=== PATIENT | male | born 1945 | race Caucasian/White ===

== ENCOUNTER 2019-06-05 19:15 | Inpatient (IN) | payer MEDICARE, SELFPAY ==
[2019-06-05 20:10] VITALS: BP 129/78; PULSE 70; PULSE 73; RESP 20; TEMP 36.6; O2SAT 96; BMI 19.6; BMI 19.7
--- NOTE | 2019-06-05 20:17 | HP.PCM_ITS ---
Problem List (1) Debility Status: Acute (2) Cardiopulmonary arrest Status: Acute (3) Shock Status: Acute (4) Pneumonia Status: Acute (5) Chronic obstructive pulmonary disease Status: Chronic (6) Lung mass Status: Chronic (7) Aspiration into airway Status: Acute (8) Hypertension Status: Chronic (9) Dysphagia Status: Acute History of Present Illness Date of Admission: 06/05/19 Chief Complaint: Here for rehabilitation, strengthening, prior to discharge home with . The patient is a 74 year old Male with below past medical history presented to [facility] 05/10/2019 with cardiopulmonary arrest. In car with , unresponsive with slow weak, pulse. Squad called, bradycardic despite atropine. PEA arrest with 1 round ACLS before return of spontaneous circulation. Intubated in Emergency Department, atrial fibrillation converted to normal sinus rhythm. Hypotensive, started on Levophed. Awake, moving all 4 extremities to command. Transfer to [facility]. 05/10/2019 Admit to [facility] ICU. Chest X-ray showed right lower lobe pneumonia, treated with broad spectrum antibiotics. Treated for septic shock. 05/10/2019 Sputum growing corynebacterium. Recurrent aspiration status post PEG tube placement. on Pureed diet. Duoneb, Bevespi, Prednisone taper for COPD. 6 Liters oxygen per nasal cannula, Nocturnal BiPAP for respiratory failure. Hypertonic saline, VEST for right lower lobe atelectasis, consider bronchoscopy. Pleural effusion maybe malignant. CT chest in 3 months to follow up right upper lobe spicculated nodule. 06/05/2019 Admit to TCU with debility, here for rehabilitation, strengthening, prior to discharged home with . Past Medical History Past Medical History (Chronic Problems): Chronic Problems Chronic obstructive pulmonary disease (Chronic) Lung mass (Chronic) Hypertension (Chronic) Home Medications: Ambulatory Orders Medication Instructions Recorded Acetaminophen 650 mg GT Q4H PRN PRN 06/05/19 Albuterol Aerosols [Ventolin 2.5 mg INHALATION Q6H PRN PRN 06/05/19 Aerosols] Carvedilol [Coreg] 12.5 mg GT BID 06/05/19 Docusate Sodium [Stool Softener] 10 mg GT BID 06/05/19 Glycopyrrolate/Formoterol Fum 2 puff PO BID 06/05/19 [Bevespi Aerosphere Inhaler] Heparin Pf Lock 10 units/ml 1 ml SUBCUT Q8 06/05/19 Ipratropium/Albuterol Sulfate 3 ml INHALATION Q6HWA.RT 06/05/19 [Duoneb] Lidocaine [Lidoderm Patch] 1 patch TOPICAL DAILY 06/05/19 Omeprazole 40 mg GT DAILY 06/05/19 Oxycodone [Oxyir] 5 mg GT Q6H PRN PRN 06/05/19 Polyethylene Glycol 3350 [Miralax] 17 gm GT DAILY 06/05/19 Potassium Chloride [K-Dur] 20 meq GT DAILY 06/05/19 Surgical History: - - PEG tube. Psychiatric History: No pertinent psych hx Lives: Spouse/ Significant Other Smoking Status: Former smoker Tobacco Use: Non-smoker Alcohol: None Drugs: None - *Family History Maternal History Items: No pertinent history Paternal History Items: No pertinent history Review of Systems Constitutional: Reports: Anorexia. Denies: Chills, Fever, Weight Change HEENT: Denies: Head Aches, Sinus Congestion, Sinus Drainage Cardiovascular: Denies: Chest Pain, Palpitations Respiratory: Denies: Cough, Shortness of breath at rest, Sputum production Gastrointestinal: Denies: Abdominal Pain, Nausea, Vomiting Genitourinary: Denies: Dysuria Musculoskeletal: Denies: Joint Pain, Joint Tenderness Skin: Denies: Rash, Wounds Neurological: Denies: Numbness, Tingling, Focal weakness Psychiatric: Denies: Anxiety, Depression, Homicidal Ideations, Suicidal Ideations Hematologic/ Lymphatic: Denies: Easy Bruising, Easy Bleeding VTE Information - Inpt Only VTE Present on Admission: No VTE Mechan Device Prophylaxis: Knee High FERN Hose VTE Pharm Prophylaxis ordered?: Yes Patient Problems: Active and Suspected Problems Debility (Acute) Cardiopulmonary arrest (Acute) Shock (Acute) Pneumonia (Acute) Aspiration into airway (Acute) Dysphagia (Acute) - Physical Exam Vitals/I&O's: Oxygen Flow Rate (L/min) 2 Oxygen Delivery Method Nasal Cannula Weight: 65.771 kg Body Mass Index (BMI) 19.6 General: Alert, Oriented x3, Cooperative HEENT: Atraumatic, PERRLA, EOMI, Normocephalic Neck: Supple, No JVD, Negative Carotid Bruits Lungs: Clear to auscultation, Normal air movement Cardiovascular: Regular rate, No murmurs Abdomen: Bowel Sounds Present, Soft, Non Tender, - - PEG tube. Extremities: No edema, Capillary Refill Less than 3 Seconds Skin: No rashes, No breakdown Musculoskeletal: No Tenderness to Palpation of Joints or Extremities Neurological: Cranial nerves II-XII grossly intact Psych/Mental Status: Normal Affect, Appropriate Assessment/Plan All Active Problems Debility (Acute) Cardiopulmonary arrest (Acute) Shock (Acute) Pneumonia (Acute) Aspiration into airway (Acute) Dysphagia (Acute) 74 year old male with below past medical history hospitalized for cardio pulmonary arrest secondary to pneumonia, admitted to TCU with debility, here for rehabilitation, strengthening, prior to discharge home with . * Debility - PT/OT. * Pain - Tylenol 650MG Q4H PRN pain (1-3), Oxycodone 5MG Q6H PRN pain (4-10), Lidoderm patch 1 patch daily. * Bowel - Miralax 17GM daily, Colace 10MG BID. * Adult immunization - Administer Prevnar 13, Pneumovax 23, Fluzone as appropr iate. * DVT prophylaxis - Lovenox 40MG SC daily. * COPD - Bevespi 1 puffs BID, Duoneb 3ML Q6HWA, Ventolin 2.5MG nebulized Q6H PRN, Oxygen 2 Liters per NC. * Hypertension - Coreg 12.5MG twice daily. * Nutrition - MVI daily, Jevity 1.5MG 40ML/hour, goal 55ML/hour, consult nutrition. * GERD - Pantoprazole 40MG daily. * Hypokalemia KCL 20MEQ daily. * Appetite loss - Rx Mirtazapine 7.5MG at bedtime.
[2019-06-05 22:16] LABS: Bedside Glucose 88 mg/dL (70-110)
[2019-06-05] MEDS: Jevity 1.5 1,000 ML 40 ML GT (22:56)
[2019-06-05] MEDS: oxyCODONE 5 MG Tablet GT (23:15)
[2019-06-06] MEDS: Lidocaine 5% Patch 1 PATCH TOPICAL (04:44)
[2019-06-06] MEDS: Carvedilol 12.5 MG Tablet GT ×2 (04:44→18:17)
[2019-06-06] MEDS: Enoxaparin 40 MG/0.4 ML Syringe SC (04:44)
[2019-06-06] MEDS: Menthol/Lanolin/Calamine/Znox 113 GM Tube 1 APPLIC TOPICAL ×2 (04:46→23:13)
[2019-06-06] MEDS: Docusate Sodium 100 MG/10 ML UDC 10 MG GT ×2 (04:47→18:17)
[2019-06-06 05:49] LABS: Absolute Neutrophil Count 5.4 X10^3/uL (2.0-7.7); Basophil# 0.05 X10^3/uL; Basophil% 0.6 % (0-1); Eosinophil# 0.31 X10^3/uL; Eosinophils% 3.9 % (0-5); Hematocrit 33.1 % (40-54); Hemoglobin 10.5 g/dL (13.0-16.5); Lymphocyte % 15.1 % (19-41); Mean Corp Hgb Conc 31.7 g/dL (32-36); Mean Corpuscular Hgb 30.2 pg (27.0-32.0); Mean Corpuscular Volume 95.1 fL (80-94); Mean Platelet Vol. 10.2 fl (6.2-12.0); Monocyte# 0.75 X10^3/uL; Monocyte% 9.4 % (0-10); NRBC Flagged by Analyzer 0 % (0-5); Neutrophil # 5.42 X10^3/uL (2.7-7.7); Neutrophil % 68.4 % (47-70); Platelet Count 304 K/mm3 (150-450); RBC Distribution Width CV 13.7 % (11.6-14.6); RBC Distribution Width SD 47.6 fl (35.1-43.9); Red Blood Count 3.48 M/mm3 (4.6-6.2); White Blood Count 7.9 K/mm3 (4.4-11.0)
[2019-06-06 06:10] LABS: Anion Gap 3 (5-15); BUN 17 mg/dL (7-18); BUN/Creat Ratio 24.1 RATIO (10-20); Calcium,Total 8.9 mg/dL (8.5-10.1); Chloride 96 mmol/L (98-107); EST Glomerular Filtration Rate 116 mL/min (>60); Est Glom Filt Rate - Afr Amer 140 mL/min (>60); Estimated Creatinine Clearance 58.46 ml/min; Glucose 112 mg/dL (74-106); Potassium 4.4 mmol/L (3.5-5.1); Sodium Level 134 mmol/L (136-145)
[2019-06-06 07:23] VITALS: PULSE 71; RESP 18; O2SAT 97
[2019-06-06] MEDS: Ipratropium/Albuterol Sulfate 3 ML AMPUL.NEB INHALATION ×3 (07:23→18:30)
[2019-06-06 10:00] VITALS: O2SAT 93
[2019-06-06] MEDS: Tuberculin,Purif.prot.deriv. 50 TU/ML Vial 5 ML ID (10:55)
[2019-06-06] MEDS: oxyCODONE 5 MG Tablet GT (11:04)
--- NOTE | 2019-06-06 12:10 | NT.THERAPY_ITS ---
Nutrition Therapy Report - History Nutrition Services has been consulted to:: Manage enteral nutrition Current diet / nutrition support order:: Regular diet- puree/honey thick; Jevity 1.5 via PEG at goal rate of 55mL/hour w/ 250mL flush every 6 hours to provide 1980 calories, 84 g protein, and 2003mL total fluid/day. - Anthropometric Measurements Height:: 6 ft Weight:: 65.77 kg Body Mass Index (BMI):: 19.6 - Relevant Labs Relevant Labs:: RBC 3.48 M/mm3 (4.6-6.2) L 06/06/19 05:05 Hgb 10.5 g/dL (13.0-16.5) L 06/06/19 05:05 Hct 33.1 % (40-54) L 06/06/19 05:05 MCV 95.1 fL (80-94) H 06/06/19 05:05 MCHC 31.7 g/dL (32-36) L 06/06/19 05:05 RDW Std Deviation 47.6 fl (35.1-43.9) H 06/06/19 05:05 Immature Gran % (Auto) 2.600 % (0.0-0.9) H 06/06/19 05:05 Lymph % (Auto) 15.1 % (19-41) L 06/06/19 05:05 Sodium 134 mmol/L (136-145) L 06/06/19 05:05 Chloride 96 mmol/L (98-107) L 06/06/19 05:05 Carbon Dioxide 35.0 mmol/L (21.0-32.0) H 06/06/19 05:05 Anion Gap 3 (5-15) L 06/06/19 05:05 BUN/Creatinine Ratio 24.1 RATIO (10-20) H 06/06/19 05:05 Glucose 112 mg/dL (74-106) H 06/06/19 05:05 - Assessment Food / Nutrition-Related History:: Res able to provide limited diet history. States he does not like puree/honey thick food/liquids so he was meeting his nutritional needs via PEG at [facility]. Unclear what tube feeds were ordered as at [facility]. Noted poor PO intake at breakfast this AM. Res states he will try purees but usually doesn't eat much. Reports significant wt loss since February 2019. States he was 230# prior to giving, CBW 145#- suggesting a 85#/36% wt loss x 3 months. Res states he had nothing to eat or drink for 4 weeks. It is unclear how accurate information reported from Res is. However, NFPA suggests moderate muscle wasting and fat loss in upper extremities, orbital region which would be consistent w/ acute, severe malnutrition. TELECOMMUNICATIONS LINE MECHANIC consulted for swallow evaluation- currently not done at time of RDN assessment. - Nutrition Diagnosis Problem / Etiology / Signs & Symptoms (PES):: Unintentional wt loss r/t inadequate oral intake, hx of aspiration as evidenced by reported wt loss of 85# or 36.9% wt loss over 3 months [facility]. Evidence of Malnutrition Exists:: Yes Severe PCM:: Acute Illness - Nutrition Intervention Nutrition Prescription:: Estimated nutritional needs: 9621-2168 calories/day, 75-85 g protein/day - Food / Nutrient Delivery Interventions Summary of nutrition intervention:: TELECOMMUNICATIONS LINE MECHANIC evaluation pending at time of RDN assessment. Spoke w/ nursing staff. Will adjust tube feeds for bolus feeding. Res in agreement of continuing nutrition support via PEG. Nutrition support ordered as / adjusted to:: For bolus tube feeds, recommend 300mL bolus of Jevity 1.5 4x/day w/ 125mL H2O flush before and after each feeding to provide 1800 calories, 76 g protein, and 1912mL total fluid per day. Continue regular diet-consistencies per TELECOMMUNICATIONS LINE MECHANIC. Nutrition education provided?: No - MNT Monitoring Further MNT monitoring and evaluation required?: Yes - As Res able to improve PO intake, will adjust bolus freq/size MNT Follow-up in:: 7-9 days - please call clinical dietitian at [phone] w/ questions as needed
[2019-06-06 12:19] VITALS: BMI 19.6
[2019-06-06 13:16] VITALS: PULSE 74; RESP 18
[2019-06-06 14:15] VITALS: BP 121/73; PULSE 77; RESP 20; TEMP 36.8; O2SAT 95
--- NOTE | 2019-06-06 14:43 | CHAPLAIN ---
Type of Pastoral Visit _x__ Initial Visit ___ Follow-up Visit ___ On-call Visit ___ General Patient Visit ___ Spiritual Assessment ___ Family Conference ___ Bereavement ___ Rapid Response ___ Code Blue ___ Other (describe below) Pastoral Care Referral From _x__ Patient ___ Family ___ Nurse ___ Physician ___ A Operator ___ Rails Developer ___ Other (describe below) Sacrament/Intervention _x__ Active listening ___ Anointing ___ Anabaptist ___ Bereavement ___ Communion ___ Arlen exploration ___ ___ Life review _x__ Prayer ___ Reconciliation ___ Sacrament of Sick _x__ Supportive presence ___ Wedding ___ Other (describe below) Pastoral Comments
--- NOTE | 2019-06-06 15:06 | PHA.CONS_ITS ---
<Radha Kasper - Last Filed: 06/06/19 15:06> Progress Note - Pharmacy Subjective: TCU Admission Objective: Allergies acetaminophen [From Vicodin] Adverse Reaction (Verified 06/05/19 20:50) Other hydrocodone [From Vicodin] Adverse Reaction (Verified 06/05/19 20:50) Other sulfamethoxazole [From Septra] Adverse Reaction (Verified 06/05/19 20:50) Other trimethoprim [From Septra] Adverse Reaction (Verified 06/05/19 20:50) Other Current Medications Generic Name Dose Route Start Last Admin Trade Name Freq PRN Reason Stop Dose Admin Acetaminophen 650 mg 06/05/19 20:34 Tylenol Liquid GT Q4H PRN PRN Pain Score 1-3/10 Albuterol Sulfate 2.5 mg 06/05/19 20:31 Ventolin Aerosols INHALATION Q6H PRN PRN WHEEZING Albuterol/Ipratropium 3 ml 06/05/19 20:45 06/06/19 13:16 Duoneb INHALATION 3 ml Q6HWA.RT DUSTY Administration Calamine/Phenol 1 applic 06/06/19 06:00 06/06/19 04:46 Calmoseptine Ointment TOPICAL 1 applicatio 0600,2200 DUSTY Administration Protocol Carvedilol 12.5 mg 06/06/19 06:00 06/06/19 04:44 Coreg GT 12.5 mg BID DUSTY Administration Docusate Sodium 10 mg 06/06/19 06:00 06/06/19 04:47 Colace Syrup GT 10 mg BID DUSTY Administration Enoxaparin Sodium 40 mg 06/06/19 06:00 06/06/19 04:44 Lovenox SC 40 mg DAILY@0600 DUSTY Administration Enteral Nutritional Formula 1,000 mls @ 40 mls/hr 06/05/19 20:40 06/05/19 22:56 Jevity 1.5 GT 40 mls/hr .Q25H DUSTY Administration Lansoprazole 30 mg 06/07/19 06:00 Lansoprazole GT DAILY DUSTY Lidocaine 1 patch 06/06/19 06:00 06/06/19 04:44 Lidoderm Patch TOPICAL 1 patch DAILY DUSTY Administration Protocol Oxycodone HCl 5 mg 06/05/19 20:31 06/06/19 11:04 Oxyir GT 5 mg Q6H PRN PRN Administration Pain Score 4-10/10 Polyethylene Glycol 17 gm 06/06/19 06:00 06/06/19 04:47 Miralax GT Not Given DAILY DUSTY Potassium Chloride 20 meq 06/06/19 06:00 06/06/19 04:44 Potassium Chl Soln GT 20 meq DAILY DUSTY Administration Tuberculin PPD 5 tu 06/13/19 10:00 Tubersol, Aplisol, Ppd ID 06/13/19 10:01 X1 ONE Problem List Debility (Acute) Cardiopulmonary arrest (Acute) Shock (Acute) Pneumonia (Acute) Chronic obstructive pulmonary disease (Chronic) Lung mass (Chronic) Aspiration into airway (Acute) Hypertension (Chronic) Vital Signs Temp Pulse Resp BP Pulse Ox 98.3 F 77 20 H 121/73 H 95 06/06/19 14:15 06/06/19 14:15 06/06/19 14:15 06/06/19 14:15 06/06/19 14:15 Oxygen Flow Rate (L/min) 6 Oxygen Delivery Method Nasal Cannula Weight: 65.516 kg Body Mass Index (BMI) 19.6 Sodium 134 mmol/L (136-145) L 06/06/19 05:05 Potassium 4.4 mmol/L (3.5-5.1) 06/06/19 05:05 Chloride 96 mmol/L (98-107) L 06/06/19 05:05 Carbon Dioxide 35.0 mmol/L (21.0-32.0) H 06/06/19 05:05 Anion Gap 3 (5-15) L 06/06/19 05:05 BUN 17 mg/dL (7-18) 06/06/19 05:05 Creatinine 0.70 mg/dL (0.70-1.30) 06/06/19 05:05 Est GFR (MDRD) Af Amer 140 mL/min (>60) 06/06/19 05:05 Est GFR (MDRD) Non-Af 116 mL/min (>60) 06/06/19 05:05 BUN/Creatinine Ratio 24.1 RATIO (10-20) H 06/06/19 05:05 Glucose 112 mg/dL (74-106) H 06/06/19 05:05 Assessment/Plan: 1. Pain: acetaminophen liquid 650mg GT Q4H PRN pain (-06/26), oxycodone 5mg GT Q6H PRN pain (4-10/10) and lidocaine 5% patch apply 1 patch to the chest daily. Please continue to monitor for increased pain and PRN usage. 2. DVT prophylaxis: enoxaparin 40mg SC daily. Please continue to monitor for S/S of bleeding/DVT, platelets and renal function. 3. COPD: ipratropium/albuterol 3mL inhalation Q6HWA.RT and albuterol 2.5mg inhalation Q6H PRN wheezing. Please continue to monitor for wheezing and increased HR. 4. Hypertension: carvedilol 12.5mg GT BID. Please continue to monitor HR and BP. 5. GERD: lansoprazole 30mg GT daily. Please continue to monitor for S/S of GERD. 6. Hypokalemia: potassium chloride 20mEq GT daily. Please continue to monitor for hypo/hyperkalemia. 7. Nutrition: multivitamin 1T GT DAILYCM. Please continue to monitor. Psychotropic Medications: None Unnecessary Medications: None Bowel Regimen: Miralax 17gm GT daily and docusate syrup 10mg GT BID. Please continue to monitor for constipation. Date of Note:: 06/06/19 - Provider Comments Provider responsibility: Provider responsible to enter orders to implement recommendations <Tavo Chambers Chi - Last Filed: 06/06/19 17:33> Progress Note - Pharmacy Subjective: [] Objective: Allergies acetaminophen [From Vicodin] Adverse Reaction (Verified 06/05/19 20:50) Other hydrocodone [From Vicodin] Adverse Reaction (Verified 06/05/19 20:50) Other sulfamethoxazole [From Septra] Adverse Reaction (Verified 06/05/19 20:50) Other trimethoprim [From Septra] Adverse Reaction (Verified 06/05/19 20:50) Other Current Medications Generic Name Dose Route Start Last Admin Trade Name Freq PRN Reason Stop Dose Admin Acetaminophen 650 mg 06/05/19 20:34 Tylenol Liquid GT Q4H PRN PRN Pain Score 1-3/10 Albuterol Sulfate 2.5 mg 06/05/19 20:31 Ventolin Aerosols INHALATION Q6H PRN PRN WHEEZING Albuterol/Ipratropium 3 ml 06/05/19 20:45 06/06/19 13:16 Duoneb INHALATION 3 ml Q6HWA.RT DUSTY Administration Calamine/Phenol 1 applic 06/06/19 06:00 06/06/19 04:46 Calmoseptine Ointment TOPICAL 1 applicatio 0600,2200 DUSTY Administration Protocol Carvedilol 12.5 mg 06/06/19 06:00 06/06/19 04:44 Coreg GT 12.5 mg BID DUSTY Administration Docusate Sodium 10 mg 06/06/19 06:00 06/06/19 04:47 Colace Syrup GT 10 mg BID DUSTY Administration Enoxaparin Sodium 40 mg 06/06/19 06:00 06/06/19 04:44 Lovenox SC 40 mg DAILY@0600 DUSTY Administration Enteral Nutritional Formula 300 ml 06/06/19 17:00 Jevity 1.5 GT 0500,1100,1700,2300 DUSTY Enteral Nutritional Formula 1,000 mls @ 40 mls/hr 06/05/19 20:40 06/05/19 22:56 Jevity 1.5 GT 06/06/19 22:00 40 mls/hr .Q25H DUSTY Administration Lansoprazole 30 mg 06/07/19 06:00 Lansoprazole GT DAILY DUSTY Lidocaine 1 patch 06/06/19 06:00 06/06/19 04:44 Lidoderm Patch TOPICAL 1 patch DAILY DUSTY Administration Protocol Oxycodone HCl 5 mg 06/05/19 20:31 06/06/19 11:04 Oxyir GT 5 mg Q6H PRN PRN Administration Pain Score 4-10/10 Polyethylene Glycol 17 gm 06/06/19 06:00 06/06/19 04:47 Miralax GT Not Given DAILY [facility] Potassium Chloride 20 meq 06/06/19 06:00 06/06/19 04:44 Potassium Chl Soln GT 20 meq DAILY DUSTY Administration Tuberculin PPD 5 tu 06/13/19 10:00 Tubersol, Aplisol, Ppd ID 06/13/19 10:01 X1 ONE Problem List Debility (Acute) Cardiopulmonary arrest (Acute) Shock (Acute) Pneumonia (Acute) Chronic obstructive pulmonary disease (Chronic) Lung mass (Chronic) Aspiration into airway (Acute) Hypertension (Chronic) Dysphagia (Acute) Vital Signs Temp Pulse Resp BP Pulse Ox 98.3 F 77 20 H 121/73 H 95 06/06/19 14:15 06/06/19 14:15 06/06/19 14:15 06/06/19 14:15 06/06/19 14:15 Oxygen Flow Rate (L/min) 6 Oxygen Delivery Method Nasal Cannula Weight: 65.516 kg Body Mass Index (BMI) 19.6 Sodium 134 mmol/L (136-145) L 06/06/19 05:05 Potassium 4.4 mmol/L (3.5-5.1) 06/06/19 05:05 Chloride 96 mmol/L (98-107) L 06/06/19 05:05 Carbon Dioxide 35.0 mmol/L (21.0-32.0) H 06/06/19 05:05 Anion Gap 3 (5-15) L 06/06/19 05:05 BUN 17 mg/dL (7-18) 06/06/19 05:05 Creatinine 0.70 mg/dL (0.70-1.30) 06/06/19 05:05 Est GFR (MDRD) Af Amer 140 mL/min (>60) 06/06/19 05:05 Est GFR (MDRD) Non-Af 116 mL/min (>60) 06/06/19 05:05 BUN/Creatinine Ratio 24.1 RATIO (10-20) H 06/06/19 05:05 Glucose 112 mg/dL (74-106) H 06/06/19 05:05 Assessment/Plan: Psychotropic Medications: Unnecessary Medications: Bowel Regimen: - Provider Comments Provider responsibility: Provider responsible to enter orders to implement recommendations Provider Comments to Recommendations by Pharmacy: Agree
--- NOTE | 2019-06-06 15:56 | CASEMGMT ---
Social Work Reviewed and agreed with social work transportation logistics internship documentation on this date. Jo Lawrence, BACK [employer]
[2019-06-06 18:30] VITALS: PULSE 75; RESP 18
[2019-06-06 21:55] VITALS: PULSE 73; O2SAT 94
[2019-06-06] MEDS: Mirtazapine 15 MG Tablet 7.5 MG GT (22:59)
[2019-06-07] MEDS: Jevity 1.5. 1,000 ML Bottle 300 ML GT ×4 (05:13→22:44)
[2019-06-07] MEDS: Lansoprazole 15 MG Capsule.DR 30 MG GT (05:13)
[2019-06-07] MEDS: Docusate Sodium 100 MG/10 ML UDC 10 MG GT ×2 (05:14→16:34)
[2019-06-07] MEDS: Carvedilol 12.5 MG Tablet GT ×2 (05:15→16:35)
[2019-06-07] MEDS: Enoxaparin 40 MG/0.4 ML Syringe SC (05:16)
[2019-06-07] MEDS: Lidocaine 5% Patch 1 PATCH TOPICAL (05:16)
[2019-06-07] MEDS: Menthol/Lanolin/Calamine/Znox 113 GM Tube 1 APPLIC TOPICAL ×2 (05:26→22:33)
[2019-06-07 09:12] VITALS: PULSE 90
[2019-06-07] MEDS: oxyCODONE 5 MG Tablet GT ×3 (09:27→23:13)
--- NOTE | 2019-06-07 12:30 | SP.MBSS_ITS ---
PRIMARY / SECONDARY DIAGNOSIS: dysphagia (R13.12) REFERRING PHYSICIAN: Dr. Tavo Chambers MD CURRENT DIET: pureed textures, honey thickened liquids; PEG supplementation DENTITION: upper dentures; natural lower MENTAL STATUS: sufficient for participation RESPIRATORY STATUS: O2 at 6L/min via nasal cannula. REASON FOR REFERRAL: The Patient is a 74 year old male referred for a modified barium swallow (MBS) study to objectively assess the Patients oropharyngeal swallow function under fluoroscopy secondary to reported concerns for PO intake tolerance following hospitalization for cardiopulmonary arrest secondary to right lower lobe pneumonia. MEDICAL HISTORY: Chronic obstructive pulmonary disease, chronic lung mass, hypertension, gastroesophageal reflux disease. PREVIOUS MODIFIED BARIUM SWALLOW STUDY: 05/22/2019 MBS at [facility], full results unavailable to clinician at time of assessment. ASSESSMENT PARAMETERS: The Patient participated in a Modified Barium Swallow (MBS) study on 06/07/2019. This study was recorded in the lateral view and images were sent to PACs for storage. Scoring was completed through each trial using the 8- point Penetration-Aspiration Scale (PAS) and the Videofluoroscopic Scale Score (VSS), and summarized via the Videofluoroscopic Dysphagia Scale (VDS) and the Bolus Residue Scale (BRS), with severity scoring through the Dysphagia Severity Rating Scale (DSRS) and the Swallowing Performance Scale (SPS), and recommended diet textures through the International Dysphagia Diet Standardisation Initiative (IDDSI) RESULTS OF THE EVALUATION: The Patient presents with moderate oropharyngeal dysphagia (DSRS: 4; SPS: 5) with grade III SILENT aspiration of thin liquids OBJECTIVE ASSESSMENT OF SWALLOW FUNCTION (QUANTITATIVE ? PER TRIAL): PENETRATION / ASPIRATION SCALE (MOSES): 1 = does not enter airway 2 = enters airway/above vocal folds/ejected 3 = enters airway/above vocal folds/not ejected 4 = enters airway/contacts vocal folds/ejected 5 = enters airway/contacts vocal folds/not ejected 6 = enters airway/below vocal folds/ejected 7 = enters airway/below vocal folds/not ejected despite effort 8 = enters airway/below vocal folds/no effort VIDEOFLOROSCOPIC SCALE SCORE (MOSES): Grade I = aspiration of material that has penetrated into the laryngeal vestibule, intact cough reflex Grade II = aspiration < 10 % of the bolus, intact cough reflex Grade III = aspiration of < 10 % of the bolus, reduced cough reflex or aspiration of > 10 % of the bolus, intact cough reflex Grade IV = aspiration of > 10 % of the bolus, reduced cough reflex PENETRATION / ASPIRATION SCALE (SCORE) WITH VIDEOFLOROSCOPIC SCALE SCORE: Thin liquid - 5 mL tsp.: 2 Thin liquids via cup (single sip): 5, 8* ? Grade III Thin liquids via cup (single sip): 8 ? Grade III [place] thickened liquids via cup (single sip): 2 [place] thickened liquids via cup (single sip): 1 [place] thickened liquids via cup (single sip): 1 Pudding via spoon: 1 [place] thickened liquids via cup (single sip): 1 Regular textured cookie: 1 [place] thickened liquids via cup (single sip): 1 [place] thickened liquids via cup (chin tuck): 2 [place] thickened liquids via cup (chin tuck): 2 [place] thickened liquids via cup (chin tuck): 1 * denotes post prandial event OBJECTIVE ASSESSMENT OF SWALLOW FUNCTION (QUANTITATIVE ? AGGREGATE): VIDEOFLOROSCOPIC DYSPHAGIA SCALE (VDS): LIP CLOSURE: 0 (of 4) Intact BOLUS FORMATION: 3 (of 6) Inadequate MASTICATION: 4 (of 8) Inadequate APRAXIA: 0 (of 4.5) None TONGUE TO PALATE CONTACT: 0 (of 10) Intact PREMATURE BOLUS LOSS: 0 (of 4.5) None ORAL TRANSIT TIME: 0 (of 3) < 1.5s TRIGGERING OF PHARYNGEAL SWALLOW: 4.5 (of 4.5) Delayed VALLECULAR RESIDUE: 6 (of 6) >50% LARYNGEAL ELEVATION: 9 (of 9) Impaired PYRIFORM SINUS RESIDUE: 4.5 (of 13.5) <10% COATING OF PHARYNGEAL WALL: 0 (of 9) No 9 (of 9) Yes PHARYNGEAL TRANSIT TIME: 0 (of 6) <1.0s ASPIRATION: 12 (of 12) Subglottic aspiration BOLUS RESIDUE SCALE (BRS): 4 (of 6) residue in valleculae and posterior pharyngeal wall OBJECTIVE ASSESSMENT OF SWALLOW FUNCTION (SEVERITY GRADING): DYSPHAGIA SEVERITY RATING SCALE (DSRS): 4 (moderate) SWALLOWING PERFORMANCE SCALE (SPS): 5 (moderate) OBJECTIVE ASSESSMENT OF SWALLOW FUNCTION (QUALITATIVE): ORAL PREPARATORY PHASE: mastication inefficiency with somewhat prolonged mastication; sufficient anterior oral containment during oral manipulation; preserved management of breathing / bolus formation ORAL TRANSITIONAL PHASE: intermittent fragmented swallowing (piecemeal deglutition) with thicker viscosities in particular; discoordinated lingual movements (fine undulations) with solid texture transport; sufficient oral clearance; sufficient oral containment across textures with no presence of premature posterior bolus loss. PHARYNGEAL PHASE: mild albeit consistent pharyngeal phase dyssynchrony contributing to prandial penetration and subsequent aspiration of thin liquids; reduced hyolaryngeal excursion and duration with inconsistent laryngeal vestibule pressure generated to expel penetrated material; pharyngeal dysmotility most prominently with thicker viscosities resulting in consolidation within the particularly within the vallecula; no signs of velopharyngeal impairments. ESOPHAGEAL PHASE: no obvious esophageal phase abnormalities observed. RESPONSE TO STRATEGIES: all deficits managed successfully with reduction in bolus rate / volume adjustments, and diet texture / viscosity adjustments; insufficient effects noted with execution of the chin tuck posture. DYSPHAGIA ASSOCIATED MEDICAL CONSIDERATIONS / INTERVENTION CONSIDERATIONS: The Patient was noted to SILENTLY aspirate with thin liquids, with clinical assessment at bedside relying on identification of classic overt signs and symptoms of aspiration considered unreliable. INTERVENTION RECOMMENDATIONS AND CONSIDERATIONS: The Patient requires continued skilled speech-language intervention targeting diet texture management and training / implementation of recommended compensatory strategies; training and implementation of recommended oropharyngeal strengthening exercises to facilitate improved laryngeal vestibule closure / pressure and pharyngeal motility; training, implementation, and Patient / caregiver education regarding implementation of the Ha Free Water Protocol (FFWP); Patient and caregiver training targeting meal preparation / thickened liquid preparation if unable to advance to baseline diet textures prior to discharge. POST ASSESSMENT EDUCATION: Results and recommendations were discussed briefly with the Patient immediately following MBS completion, with the Patient verbalizing understanding and agreement with all recommendations and education provided, though continued education is warranted. DIET TEXTURE RECOMMENDATIONS: Will recommend a mechanical soft textured (IDDSI: 5), nectar thickened liquid (IDDSI: 2) diet RECOMMENDED COMPENSATORY STRATEGIES: Direct supervision, reduced bolus volume / rate of ingestion, liquid chaser at reasonable intervals, seated upright at 90 degrees during PO intake, remain upright for 30-60 minutes post meal (GERD precaution), medications one at a time with purees. IMAGE COUNT: [id number] Krish Lezama M.A., CCC-WEB PRESS OPERATOR APPRENTICE, CBIS MBSImP Certified, LSVT Certified [facility] Speech-Language Pathology Department [email or web address]
[2019-06-07 13:28] VITALS: PULSE 88; RESP 22; O2SAT 90
[2019-06-07] MEDS: Ipratropium/Albuterol Sulfate 3 ML AMPUL.NEB INHALATION ×2 (13:28→19:20)
[2019-06-07 14:15] VITALS: BP 121/74; PULSE 76; RESP 20; TEMP 36.8; O2SAT 95
--- NOTE | 2019-06-07 18:46 | NURSING ---
pt requesting change to bolus feedings, feels they are hindering his appetite the way they currentyl are
[2019-06-07 19:25] VITALS: PULSE 89; RESP 18; O2SAT 92
[2019-06-07] MEDS: MELATONIN 10 MG TABLET PO (22:32)
[2019-06-07] MEDS: Mirtazapine 15 MG Tablet 7.5 MG GT (22:33)
[2019-06-08] MEDS: Enoxaparin 40 MG/0.4 ML Syringe SC (04:20)
[2019-06-08] MEDS: Lansoprazole 15 MG Capsule.DR 30 MG GT (04:20)
[2019-06-08] MEDS: Docusate Sodium 100 MG/10 ML UDC 10 MG GT ×2 (04:20→16:54)
[2019-06-08] MEDS: Lidocaine 5% Patch 1 PATCH TOPICAL (04:22)
[2019-06-08] MEDS: Carvedilol 12.5 MG Tablet GT ×2 (04:22→16:54)
[2019-06-08] MEDS: Jevity 1.5. 1,000 ML Bottle 300 ML GT (04:23)
[2019-06-08] MEDS: Menthol/Lanolin/Calamine/Znox 113 GM Tube 1 APPLIC TOPICAL ×2 (04:24→22:43)
[2019-06-08] MEDS: Acetaminophen 650 MG/20 ML UDC GT (04:38)
[2019-06-08 06:49] VITALS: PULSE 78; RESP 20; O2SAT 97
[2019-06-08] MEDS: Ipratropium/Albuterol Sulfate 3 ML AMPUL.NEB INHALATION ×2 (06:49→19:50)
[2019-06-08] MEDS: oxyCODONE 5 MG Tablet GT (13:19)
[2019-06-08 14:19] VITALS: BP 114/72; PULSE 82; RESP 16; TEMP 36.7; O2SAT 95
--- NOTE | 2019-06-08 15:40 | PCM.NTREPORT ---
Nutrition Therapy Report - History Nutrition Services has been consulted to:: Manage enteral nutrition Current diet / nutrition support order:: Current TF: 300mL bolus of Jevity 1.5 4x/day w/ 125mL H2O flush before and after each feeding to provide 1800 calories, 76 g protein, and 1912mL total fluid per day. Regular Diet-mechanical soft, nectar thick - Anthropometric Measurements Height:: 6 ft Weight:: 65.771 kg Body Mass Index (BMI):: 19.6 - Relevant Labs Relevant Labs:: RBC 3.48 M/mm3 (4.6-6.2) L 06/06/19 05:05 Hgb 10.5 g/dL (13.0-16.5) L 06/06/19 05:05 Hct 33.1 % (40-54) L 06/06/19 05:05 MCV 95.1 fL (80-94) H 06/06/19 05:05 MCHC 31.7 g/dL (32-36) L 06/06/19 05:05 RDW Std Deviation 47.6 fl (35.1-43.9) H 06/06/19 05:05 Immature Gran % (Auto) 2.600 % (0.0-0.9) H 06/06/19 05:05 Lymph % (Auto) 15.1 % (19-41) L 06/06/19 05:05 Sodium 134 mmol/L (136-145) L 06/06/19 05:05 Chloride 96 mmol/L (98-107) L 06/06/19 05:05 Carbon Dioxide 35.0 mmol/L (21.0-32.0) H 06/06/19 05:05 Anion Gap 3 (5-15) L 06/06/19 05:05 BUN/Creatinine Ratio 24.1 RATIO (10-20) H 06/06/19 05:05 Glucose 112 mg/dL (74-106) H 06/06/19 05:05 - Assessment Food / Nutrition-Related History:: RDN recieved call from LESLEY Khan requesting adjust bolus TF amount/times as res progressed to mechanical soft, nectar thick liquids this day. Current TF: 300mL bolus of Jevity 1.5 4x/day w/ 125mL H2O flush before and after each feeding to provide 1800 calories, 76 g protein, and 1912mL total fluid per day. Res tolerating with minimal residuals (0,2,0). Res w/ overall 75-100% of intake since admin 06/05. Res states did okay today consumed 1/2 of burger at lunch, pudding, pears, and cranberry juice; b-fast ate some scrambled eggs and could not recall rest of meal. Res tolerating diet well. Per EMR res wt stable at ~ 65 kg w/ CBW 65.771 kg. Discussed continuing TF via PEG w/ res with goal of decreasing TF as res PO intake continues to improve and remains adequate at meals. [ End ] - Nutrition Diagnosis Problem / Etiology / Signs & Symptoms (PES):: Unintentional wt loss r/t inadequate oral intake, hx of aspiration as evidenced by reported wt loss of 85# or 36.9% wt loss over 3 months SERVICE LEARNING COORDINATOR. Evidence of Malnutrition Exists:: Yes Severe PCM:: Acute Illness - Nutrition Intervention Nutrition Prescription:: Estimated nutritional needs: 3002-0408 calories/day, 75-85 g protein/day. - Food / Nutrient Delivery Interventions Summary of nutrition intervention:: NONPROFIT DIRECTOR evaluation re: mechanical soft, nectar thick liquids. Spoke w/ RNBill requesting adjustment of bolus feeding. Res in agreement of continuing nutrition support via PEG. Nutrition support ordered as / adjusted to:: For bolus tube feeds, recommend 375mL bolus of Jevity 1.5 3x/day w/ 140mL H2O flush before and after each feeding to provide 1688 calories, 72 g protein, and 1695mL total fluid per day. As res able to tolerate larger portions of food by mouth, bolus size/frequency may be adjusted. Continue regular diet-consistencies per NONPROFIT DIRECTOR. [ End ] Nutrition education provided?: No - MNT Monitoring Further MNT monitoring and evaluation required?: Yes - As Res able to improve PO intake, will adjust bolus freq/size MNT Follow-up in:: 7-9 days - please call clinical dietitian at [phone] w/ questions as needed
[2019-06-08 15:50] VITALS: BMI 19.6
[2019-06-08 19:50] VITALS: PULSE 72; RESP 20; O2SAT 96
[2019-06-08] MEDS: MELATONIN 10 MG TABLET PO (22:36)
[2019-06-08] MEDS: Mirtazapine 15 MG Tablet 7.5 MG GT (22:36)
[2019-06-08] MEDS: Jevity 1.5. 1,000 ML Bottle 375 ML GT (22:38)
[2019-06-08 23:00] VITALS: PULSE 72; RESP 18; O2SAT 95
[2019-06-09] MEDS: Menthol/Lanolin/Calamine/Znox 113 GM Tube 1 APPLIC TOPICAL ×2 (05:31→20:19)
[2019-06-09] MEDS: Enoxaparin 40 MG/0.4 ML Syringe SC (05:33)
[2019-06-09] MEDS: Pantoprazole Sodium 40 MG Tablet PO (05:33)
[2019-06-09] MEDS: Lidocaine 5% Patch 1 PATCH TOPICAL (05:34)
[2019-06-09] MEDS: Docusate Sodium 100 MG/10 ML UDC 10 MG GT ×2 (05:35→18:37)
[2019-06-09] MEDS: Carvedilol 12.5 MG Tablet PO ×2 (05:40→18:38)
--- NOTE | 2019-06-09 05:54 | NURSING ---
Pt refusing Jevity this morning states, I will not be able to eat breakfast if I'm given this. Rn made aware
[2019-06-09 06:40] VITALS: PULSE 82; RESP 24; O2SAT 96
[2019-06-09] MEDS: Ipratropium/Albuterol Sulfate 3 ML AMPUL.NEB INHALATION ×3 (06:40→19:40)
[2019-06-09 13:55] VITALS: PULSE 80; RESP 22; O2SAT 90
[2019-06-09 16:00] VITALS: BP 102/57; PULSE 78; RESP 20; TEMP 37.1; O2SAT 92
[2019-06-09] MEDS: oxyCODONE 5 MG Tablet PO (16:10)
[2019-06-09 19:40] VITALS: PULSE 71; RESP 20; O2SAT 93
[2019-06-09] MEDS: Mirtazapine 15 MG Tablet 7.5 MG PO (20:16)
[2019-06-09] MEDS: MELATONIN 10 MG TABLET PO (20:16)
[2019-06-09] MEDS: Jevity 1.5. 1,000 ML Bottle 375 ML GT (20:19)
[2019-06-09 20:20] VITALS: PULSE 73; RESP 18
[2019-06-10] MEDS: Pantoprazole Sodium 40 MG Tablet PO (05:46)
[2019-06-10] MEDS: Carvedilol 12.5 MG Tablet PO ×2 (05:46→17:08)
[2019-06-10] MEDS: Enoxaparin 40 MG/0.4 ML Syringe SC (05:46)
[2019-06-10] MEDS: Lidocaine 5% Patch 1 PATCH TOPICAL (05:48)
[2019-06-10] MEDS: Menthol/Lanolin/Calamine/Znox 113 GM Tube 1 APPLIC TOPICAL ×2 (05:49→21:34)
[2019-06-10 07:15] VITALS: PULSE 70; RESP 20; O2SAT 98
[2019-06-10] MEDS: Ipratropium/Albuterol Sulfate 3 ML AMPUL.NEB INHALATION ×3 (07:15→19:55)
[2019-06-10] MEDS: oxyCODONE 5 MG Tablet PO ×2 (08:18→17:18)
[2019-06-10 12:54] VITALS: PULSE 74; RESP 16; O2SAT 92
[2019-06-10 13:16] VITALS: PULSE 70; RESP 20
--- NOTE | 2019-06-10 13:16 | NURSING ---
pt refused jevity at this time stating I ate lunch I really don't think I need it. Pt did allow this nurse to flush peg tube with 140cc. LESLEY Rose aware
[2019-06-10 14:34] VITALS: BP 110/55; PULSE 16; RESP 18; TEMP 36.3; O2SAT 96
[2019-06-10] MEDS: Docusate Sodium 100 MG/10 ML UDC 10 MG GT (17:07)
[2019-06-10] MEDS: Mirtazapine 15 MG Tablet 7.5 MG PO (21:33)
[2019-06-10] MEDS: MELATONIN 10 MG TABLET PO (21:33)
[2019-06-10] MEDS: Jevity 1.5. 1,000 ML Bottle 375 ML GT (21:34)
[2019-06-10 22:31] VITALS: PULSE 75; RESP 22
[2019-06-11] MEDS: Carvedilol 12.5 MG Tablet PO ×2 (05:52→17:16)
[2019-06-11] MEDS: Enoxaparin 40 MG/0.4 ML Syringe SC (05:52)
[2019-06-11] MEDS: Pantoprazole Sodium 40 MG Tablet PO (05:52)
[2019-06-11] MEDS: Menthol/Lanolin/Calamine/Znox 113 GM Tube 1 APPLIC TOPICAL ×2 (05:53→22:35)
[2019-06-11] MEDS: Docusate Sodium 100 MG/10 ML UDC 10 MG GT (05:53)
[2019-06-11] MEDS: Lidocaine 5% Patch 1 PATCH TOPICAL (05:54)
--- NOTE | 2019-06-11 07:02 | NURSING ---
Dr. Chambers updated on pt refusing 0600 and 1400 jevity. New order to only get Jevity QHS.
[2019-06-11 12:50] VITALS: PULSE 70; RESP 18
[2019-06-11] MEDS: Ipratropium/Albuterol Sulfate 3 ML AMPUL.NEB INHALATION ×2 (13:09→20:25)
[2019-06-11 14:52] VITALS: BP 122/65; PULSE 71; RESP 18; TEMP 36.3; O2SAT 96
[2019-06-11] MEDS: Docusate Sodium 100 MG Capsule PO (17:16)
--- NOTE | 2019-06-11 18:01 | RAD_ITS ---
STUDY: X-RAY CHEST REASON FOR EXAM: Male, 74 years old. HYPOXIA, COUGH TECHNIQUE: Frontal and lateral views of the chest COMPARISON: None. FINDINGS: There is moderate emphysema. There are irregular lung markings throughout the mid to lower lungs, possibly scarring. There is no pneumothorax, pulmonary edema or pleural effusions. Cardiac size is normal. There is osteoporosis, compression fractures and cement augmentation in the mid thoracic vertebra. RAD/Chest PA and Lateral IMPRESSION: 1. No acute findings. 2. Emphysema, presumed pulmonary scars. Electronically Signed: Mayte Santana, at 19:34 EST Tel , Service support ,
--- NOTE | 2019-06-11 18:04 | NURSING ---
Addendum entered by Rose Kapoor 06/11/19 18:09: pt and updated Original Note: pt sats dropping 80-90's on 6 liters, encouraged to use incentive spirometer. Dr Chambers updated, new order for cxr and resp panel. will place pt in droplet precautions
[2019-06-11 20:25] VITALS: PULSE 66; RESP 28; O2SAT 87
--- NOTE | 2019-06-11 20:25 | CPS ---
switched pt over to 50% ventimask
[2019-06-11 22:30] VITALS: BP 118/60; PULSE 69; RESP 26; TEMP 37.1; O2SAT 98
[2019-06-11 22:36] VITALS: PULSE 69; RESP 26; O2SAT 98
[2019-06-12 01:32] VITALS: PULSE 68; RESP 28; O2SAT 96
[2019-06-12] MEDS: Ipratropium/Albuterol Sulfate 3 ML AMPUL.NEB INHALATION ×4 (01:32→20:00)
[2019-06-12 07:10] VITALS: PULSE 82; RESP 20; O2SAT 94
--- NOTE | 2019-06-12 08:57 | NURSING ---
Pt refused all AM medication and breakfast tray. Dr. Chambers aware. DR. Chambers discussed hospice option after respiratory panel results with the PT, PT agreeable to hospice consult.
[2019-06-12 10:00] VITALS: PULSE 68; RESP 20; O2SAT 93
[2019-06-12 12:40] VITALS: PULSE 79; RESP 16
--- NOTE | 2019-06-12 15:46 | CASEMGMT ---
Social Work Physician spoke with patient about hospice care. Pt agreeable. Met with pt to discuss wishes. Pt very drowsy, SOB during conversation. Pt stated multiple times I am ready to go to [facility]. Pt gave permission to contact for further decision making. Spoke with and explained above. Discussed home with hospice, SNF with hospice, financial liability. stated unable to pay for any [id number] care. Provided list of hospice agencies, SNF list and Medicaid application. Will continue to follow to assist with process. GARFIELD RandleW
--- NOTE | 2019-06-12 15:54 | CASEMGMT ---
Social Work Reviewed and agreed with social work internal control specialist documentation on this date. Jo Lawrence, PHOTOGRAPHER STILL HORTICULTURAL SERVICES SUPERVISOR
--- NOTE | 2019-06-12 15:54 | CASEMGMT ---
Social Work Reviewed and agreed with social work video production intern documentation on this date. Jo Lawrence, ARBOR PRESS OPERATOR DISTRICT SALES MANAGER
[2019-06-12 16:00] VITALS: BP 108/57; PULSE 87; RESP 18; TEMP 36.7; O2SAT 97
[2019-06-12] MEDS: Docusate Sodium 100 MG Capsule PO (18:16)
[2019-06-12] MEDS: Carvedilol 12.5 MG Tablet PO (18:16)
[2019-06-12 20:00] VITALS: PULSE 73; RESP 20
[2019-06-12] MEDS: MELATONIN 10 MG TABLET PO (21:20)
[2019-06-12] MEDS: Mirtazapine 15 MG Tablet 7.5 MG PO (21:20)
[2019-06-12] MEDS: Jevity 1.5. 1,000 ML Bottle 375 ML GT (21:32)
[2019-06-12] MEDS: Menthol/Lanolin/Calamine/Znox 113 GM Tube 1 APPLIC TOPICAL (21:33)
[2019-06-13 00:53] VITALS: PULSE 69; RESP 22
[2019-06-13] MEDS: Albuterol 2.5 MG/3 ML VIAL.NEB. INHALATION ×2 (00:53→19:40)
--- NOTE | 2019-06-13 02:34 | NURSING ---
01:15 patient found in bathroom with oxygen off. Patient grayish in color. Patient ambulated back to bed. Oxygen saturation at 50%. Oxygen placed back on patient at 4 LPM. Rebound was slow but patient eventually increased back to 90-91%. Respiratory called and breathing treatment administered. RN aware. PA started. Educated patient on use of call light. Patient verbalized he understood.
[2019-06-13 02:37] VITALS: PULSE 69; O2SAT 95
[2019-06-13] MEDS: Enoxaparin 40 MG/0.4 ML Syringe SC (05:22)
[2019-06-13] MEDS: Carvedilol 12.5 MG Tablet PO ×2 (05:22→16:44)
[2019-06-13] MEDS: Lidocaine 5% Patch 1 PATCH TOPICAL (05:22)
[2019-06-13] MEDS: Pantoprazole Sodium 40 MG Tablet PO (05:22)
[2019-06-13] MEDS: Docusate Sodium 100 MG Capsule PO (05:23)
[2019-06-13] MEDS: Menthol/Lanolin/Calamine/Znox 113 GM Tube 1 APPLIC TOPICAL ×2 (05:30→20:39)
[2019-06-13 05:45] LABS: Absolute Neutrophil Count 3.5 X10^3/uL (2.0-7.7); Basophil# 0.03 X10^3/uL; Basophil% 0.6 % (0-1); Eosinophil# 0.24 X10^3/uL; Eosinophils% 4.8 % (0-5); Hematocrit 27.7 % (40-54); Hemoglobin 8.7 g/dL (13.0-16.5); Mean Corp Hgb Conc 31.4 g/dL (32-36); Mean Corpuscular Volume 95.5 fL (80-94); Mean Platelet Vol. 9.7 fl (6.2-12.0); Monocyte# 0.52 X10^3/uL; Monocyte% 10.4 % (0-10); NRBC Flagged by Analyzer 0 % (0-5); Neutrophil # 3.49 X10^3/uL (2.7-7.7); Neutrophil % 69.6 % (47-70); Platelet Count 197 K/mm3 (150-450); RBC Distribution Width CV 12.6 % (11.6-14.6); RBC Distribution Width SD 44.1 fl (35.1-43.9)
[2019-06-13 06:03] LABS: Anion Gap 2 (5-15); BUN 15 mg/dL (7-18); BUN/Creat Ratio 24.7 RATIO (10-20); Calcium,Total 8.4 mg/dL (8.5-10.1); Chloride 94 mmol/L (98-107); Creatinine, Serum 0.61 mg/dL (0.70-1.30); EST Glomerular Filtration Rate 137 mL/min (>60); Est Glom Filt Rate - Afr Amer 166 mL/min (>60); Estimated Creatinine Clearance 57.83 ml/min; Glucose 90 mg/dL (74-106); Potassium 4.2 mmol/L (3.5-5.1); Sodium Level 137 mmol/L (136-145)
[2019-06-13 06:35] VITALS: PULSE 74; RESP 18; O2SAT 90
[2019-06-13] MEDS: Ipratropium/Albuterol Sulfate 3 ML AMPUL.NEB INHALATION ×2 (06:35→13:12)
[2019-06-13] MEDS: Iron Polysaccharide Complex 150 MG CAPSULE PO (08:18)
--- NOTE | 2019-06-13 09:45 | CASEMGMT ---
Social Work Talked with pt . requesting more information on Hospice care. Educated that Hospice worker can give better information. requesting [facility], made referral. Will continue to follow. Analy Rodriguez, social work internal revenue agent Jo Lawrence, GRINDING ROOM INSPECTOR MIDDLE SCHOOL READING TEACHER
--- NOTE | 2019-06-13 09:52 | CASEMGMT ---
Social Work Reviewed and agreed with social work collector of internal revenue documentation on this date. Jo Lawrence, HEALTH ASSISTANT TANK WASHER
[2019-06-13] MEDS: Tuberculin,Purif.prot.deriv. 50 TU/ML Vial 5 ML ID (10:22)
--- NOTE | 2019-06-13 12:04 | CASEMGMT ---
Social Work Pt and have appt with [facility] 06/14 at 11 am. Jo Lawrence, CLEAN RICE GRADER AND REEL TENDER GAS PRODUCER
[2019-06-13 13:13] VITALS: PULSE 72; RESP 18
[2019-06-13 14:30] VITALS: BP 101/61; PULSE 87; RESP 16; TEMP 36.1; O2SAT 96
[2019-06-13 19:40] VITALS: PULSE 78; RESP 18
[2019-06-13] MEDS: Mirtazapine 15 MG Tablet 7.5 MG PO (20:38)
[2019-06-13] MEDS: MELATONIN 10 MG TABLET PO (20:38)
--- NOTE | 2019-06-13 22:16 | NURSING ---
Pt refused hs jevity stated, I don't want it because my stomach is full. Rn made aware.
--- NOTE | 2019-06-14 00:50 | NURSING ---
This nurse was doing rounds and saw pt with oxygen out of nose. Nurse tried putting oxygen back in pt nose after explaining that he didn't have it in his nose. Pt grabbed the oxygen and pulled it back off. SpO2 87% nurse explained to pt that his oxygen needs to stay on because he oxygen level is low. Finally got the oxygen back into the pt nose and SpO2 came back up to 92% NC 6L. Gissel Fisher was in the room when nurses was in the room.
[2019-06-14] MEDS: Carvedilol 12.5 MG Tablet PO ×2 (05:28→17:16)
[2019-06-14] MEDS: Pantoprazole Sodium 40 MG Tablet PO (05:28)
[2019-06-14] MEDS: Docusate Sodium 100 MG Capsule PO ×2 (05:28→17:15)
[2019-06-14] MEDS: Enoxaparin 40 MG/0.4 ML Syringe SC (05:28)
[2019-06-14] MEDS: Menthol/Lanolin/Calamine/Znox 113 GM Tube 1 APPLIC TOPICAL ×2 (05:29→22:20)
[2019-06-14] MEDS: Lidocaine 5% Patch 1 PATCH TOPICAL (05:29)
[2019-06-14 07:58] VITALS: PULSE 72; RESP 18; O2SAT 91
[2019-06-14] MEDS: Ipratropium/Albuterol Sulfate 3 ML AMPUL.NEB INHALATION ×2 (07:59→18:48)
[2019-06-14] MEDS: Iron Polysaccharide Complex 150 MG CAPSULE PO (08:15)
[2019-06-14 08:18] VITALS: PULSE 73; RESP 18; O2SAT 97
--- NOTE | 2019-06-14 09:16 | CASEMGMT ---
Addendum entered by Jo Lawrence 06/14/19 14:43: Spoke with [facility] and about pt's DC plans. and pt agreeable to continuing with therapy until insurance issues DC date to become as strong and independent as possible. The plan is for pt to DC home with hospice services and 09/11 assistance from , family, friends and private duty aides. Provided forestry aide and [facility] resources. Informed NRD 06/15 and continued stay is not guaranteed. Will continue to follow. Original Note: Social Work IDT met with patient, , daughter and son-in-law for care plan meeting. Discussed patient's progress in therapy. Pt is mod assist for LE ADLs, supervision with UE ADLs while seated, SBA for transfers and walking [address] is working with [facility]. Pt is on mech soft and nectar thick diet with au free water protocol. Pt has poor P.O. intake, ordered ensure. Overall pt has poor endurance, very tired and has SOB. Explained insurance coverage for continued stay and hospice services. Family to meet with [facility] at 11 am on this date. Will continue to follow and assist with patient's goals. Jo Lawrence, GARFIELD HAROW
--- NOTE | 2019-06-14 11:37 | MDS.RN ---
Information for the mds was obtained from review of the clinical record, interview of resident, staff, and direct observation of resident's care.
[2019-06-14 13:42] VITALS: BP 112/57; PULSE 68; RESP 16; TEMP 36.7; O2SAT 96
[2019-06-14 18:50] VITALS: PULSE 70; RESP 18; O2SAT 98
[2019-06-14] MEDS: Mirtazapine 15 MG Tablet 7.5 MG PO (22:17)
[2019-06-14] MEDS: MELATONIN 10 MG TABLET PO (22:19)
[2019-06-14] MEDS: Jevity 1.5. 1,000 ML Bottle 375 ML GT (22:41)
[2019-06-15 06:02] LABS: Hematocrit 29.3 % (40-54); Hemoglobin 8.9 g/dL (13.0-16.5)
[2019-06-15 06:35] VITALS: PULSE 74; RESP 20; O2SAT 97
[2019-06-15] MEDS: Ipratropium/Albuterol Sulfate 3 ML AMPUL.NEB INHALATION ×3 (06:35→19:05)
[2019-06-15] MEDS: Lidocaine 5% Patch 1 PATCH TOPICAL (06:48)
[2019-06-15] MEDS: Carvedilol 12.5 MG Tablet PO ×2 (06:48→17:35)
[2019-06-15] MEDS: Pantoprazole Sodium 40 MG Tablet PO (06:48)
[2019-06-15] MEDS: Docusate Sodium 100 MG Capsule PO ×2 (06:48→17:35)
[2019-06-15] MEDS: Enoxaparin 40 MG/0.4 ML Syringe SC (06:52)
[2019-06-15] MEDS: Menthol/Lanolin/Calamine/Znox 113 GM Tube 1 APPLIC TOPICAL ×2 (06:54→20:32)
[2019-06-15] MEDS: Iron Polysaccharide Complex 150 MG CAPSULE PO (07:56)
--- NOTE | 2019-06-15 12:44 | CASEMGMT ---
Social Work Reviewed and agreed with social work leadership intern documentation on this date. Jo Lawrence, MACHINE DRILLER DIGITAL RETOUCHER
[2019-06-15 13:35] VITALS: PULSE 77; RESP 20
[2019-06-15 15:17] VITALS: BP 112/55; PULSE 70; RESP 20; TEMP 36.7; O2SAT 92
--- NOTE | 2019-06-15 17:16 | PCA ---
Family provided pt with dinner, 06/15/2019
[2019-06-15 19:05] VITALS: PULSE 82; RESP 22
[2019-06-15] MEDS: Mirtazapine 15 MG Tablet 7.5 MG PO (20:30)
[2019-06-15] MEDS: MELATONIN 10 MG TABLET PO (20:30)
[2019-06-15 20:32] VITALS: PULSE 70; RESP 18; O2SAT 98
[2019-06-15] MEDS: Jevity 1.5. 1,000 ML Bottle 375 ML GT (20:46)
--- NOTE | 2019-06-16 02:52 | NURSING ---
Patient sitting on side of bed. Patient confused not sure of what he is doing. Asked patient if he needs to use the restroom patient states no. Asked patient if he needs help, patient states I don't know. Patient noted to be using his accessory muscles to breathe. Patient's SPO2 98 on 5 L of O2. Patient helped back into bed. Patient alert to self only at this time. Will update Dr. Chambers on confusion.
[2019-06-16] MEDS: Lidocaine 5% Patch 1 PATCH TOPICAL (06:52)
[2019-06-16] MEDS: Enoxaparin 40 MG/0.4 ML Syringe SC (06:55)
[2019-06-16] MEDS: Carvedilol 12.5 MG Tablet PO ×2 (06:56→17:49)
[2019-06-16] MEDS: Polyethylene Glycol 3350 17 GM PACKET PO (06:56)
[2019-06-16] MEDS: Docusate Sodium 100 MG Capsule PO (06:56)
[2019-06-16] MEDS: Ipratropium/Albuterol Sulfate 3 ML AMPUL.NEB INHALATION ×2 (07:01→19:17)
[2019-06-16] MEDS: Menthol/Lanolin/Calamine/Znox 113 GM Tube 1 APPLIC TOPICAL ×2 (07:01→22:50)
[2019-06-16] MEDS: Pantoprazole Sodium 40 MG Tablet PO (07:05)
[2019-06-16 07:09] VITALS: PULSE 77; RESP 18; O2SAT 95
[2019-06-16] MEDS: Iron Polysaccharide Complex 150 MG CAPSULE PO (08:04)
--- NOTE | 2019-06-16 11:26 | CASEMGMT ---
Social Work Talked with pt and . NRD 06/18, pt requesting to DC 06/21. SW scheduled cot transport for pt with [facility], pt going home on O2 and with Hospice at 10 am. No DME needs. requesting to talk with physician. Plan: DC 06/21 with Hospice, No DME needs. Analy Rodriguez, social work sales and marketing intern Jo Lawrence, TELEVISION INSPECTOR TIP STITCHER
[2019-06-16 12:13] VITALS: PULSE 73; RESP 18; O2SAT 95
[2019-06-16 13:05] VITALS: O2SAT 90
--- NOTE | 2019-06-16 14:18 | DCINST_ITS ---
- Discharge Diagnoses Current Active Problems: Current Active and Chronic Problems Debility (Acute) Cardiopulmonary arrest (Acute) Shock (Acute) Pneumonia (Acute) Chronic obstructive pulmonary disease (Chronic) Lung mass (Chronic) Aspiration into airway (Acute) Hypertension (Chronic) Dysphagia (Acute) You will use the following diet at home:: No restrictions, Regular Your food should be the consistency of: Regular Your liquids should be the consistency of: Regular/Thin Discharge Activity: Return to Normal Activity, May Shower, Use Walker Weight Bearing Status: Weight bearing as tolerated Call your doctor if you observe: Fever of 101 or Higher, Inability to urinate, Inability to have a bowel movement, Shortness of breath, Chest pain, Uncontrolled pain Allergies/Adverse Reactions: Allergies acetaminophen [From Vicodin] Adverse Reaction (Verified 06/05/19 20:50) Other hydrocodone [From Vicodin] Adverse Reaction (Verified 06/05/19 20:50) Other sulfamethoxazole [From Septra] Adverse Reaction (Verified 06/05/19 20:50) Other trimethoprim [From Decra] Adverse Reaction (Verified 06/05/19 20:50) Other Medications to take at Discharge Glycopyrrolate/Formoterol Fum [Bevespi Aerosphere Inhaler] 2 puff PO BID 06/05/19 Omeprazole 40 mg GT DAILY 06/05/19 Potassium Chloride [K-Dur] 20 meq GT DAILY 06/05/19 Acetaminophen [Tylenol Tablet] 650 mg PO Q4H PRN PRN tablet 06/16/19 Albuterol Aerosols [Ventolin Aerosols] 2.5 mg INHALATION Q6H PRN PRN #120 06/16/19 Carvedilol [Coreg] 12.5 mg GT BID #60 tab 06/16/19 Docusate Sodium [Colace] 100 mg PO BID #60 cap 06/16/19 Ipratropium/Albuterol Sulfate [Duoneb] 3 ml INHALATION Q6HWA.RT #120 06/16/19 Iron Polysaccharide Complex [Ferrex 150] 150 mg PO DAILYCM #30 cap 06/16/19 Jevity 1.5 375 ml GT QHS #15 bottle 06/16/19 Lidocaine [Lidoderm Patch] 1 patch TOPICAL DAILY #30 patch 06/16/19 Melatonin 10 mg PO QHS tablet 06/16/19 Menthol/Lanolin/Calamine/Znox [Calmoseptine Ointment] 1 applic TOPICAL 0600,2200 tube 06/16/19 Mineral Oil/Petrolatum,White [Eucerin] 1 applic TOPICAL 2200 jar 06/16/19 Mirtazapine [Remeron] 7.5 mg PO QHS #30 tab 06/16/19 Polyethylene Glycol 3350 [Miralax] 17 gm GT DAILY #30 packet 06/16/19 Potassium Chloride [K-Dur] 20 meq PO DAILYCM #0 tablet 06/16/19 The following prescriptions were given: Docusate Sodium [Colace] 100 mg PO BID #60 cap Prescription Printed Carvedilol [Coreg] 12.5 mg GT BID #60 tab Prescription Printed Ipratropium/Albuterol Sulfate [Duoneb] 3 ml INHALATION Q6HWA.RT #120 Prescription Printed Iron Polysaccharide Complex [Ferrex 150] 150 mg PO DAILYCM #30 cap Prescription Printed Jevity 1.5 375 ml GT QHS #15 bottle Prescription Printed Lidocaine [Lidoderm Patch] 1 patch TOPICAL DAILY #30 patch Prescription Printed Polyethylene Glycol 3350 [Miralax] 17 gm GT DAILY #30 packet Prescription Printed Mirtazapine [Remeron] 7.5 mg PO QHS #30 tab Prescription Printed Albuterol Aerosols [Ventolin Aerosols] 2.5 mg INHALATION Q6H PRN PRN #120 PRN Reason: Wheezing Prescription Printed Test Results: Test results from this visit will be discussed in further detail at your follow- up appointment, if applicable. Please Follow Up With: Dr. Misael Galeana When: 1 week. Proposed Discharge Date: 06/22/19
--- NOTE | 2019-06-16 14:20 | PCM.DC.SUM ---
Discharge Date and Diagnosis - Problem List Patient Problems: Active and Suspected Problems Debility (Acute) Cardiopulmonary arrest (Acute) Shock (Acute) Pneumonia (Acute) Aspiration into airway (Acute) Dysphagia (Acute) Date of Admission: 06/05/19 Date of Discharge: 06/22/19 - Primary Discharge Diagnosis Active and Suspected Problems Debility (Acute) Cardiopulmonary arrest (Acute) Shock (Acute) Pneumonia (Acute) Aspiration into airway (Acute) Dysphagia (Acute) - Secondary Discharge Diagnosis Chronic Problems Chronic obstructive pulmonary disease (Chronic) Lung mass (Chronic) Hypertension (Chronic) Hospital Course and Treatment Imaging Results: 06/05/19 20:44 Diet: Regular Diet Food consistency:: Mechanical Soft/Ground Liquid Consistency:: Dewart Thick Is pt able to select menu?: Yes Diet Comments: Supervision; seated at 90 degrees, [facility] pretty w/ radha Clinical Impression(s) from Imaging Studies Chest X-Ray 06/11/19 18:01 IMPRESSION: 1. No acute findings. 2. Emphysema, presumed pulmonary scars. Electronically Signed: Teeteejonatan Esther, at 19:34 EST Tel , Service support , Labs (Last 48 Hours) 06/15/19 05:10 Hgb 8.9 L Hct 29.3 L Operations: None Procedures: None Summary of Care Provided: The patient is a 74 year old Male with below past medical history hospitalized for cardiopulmonary arrest secondary to pneumonia, admitted to TCU with debility, here for rehabilitation, strengthening, prior to discharge home with . On TCU, resident did not progress with therapy, he is dying of end stage COPD. Discharge home with hospice, No DME needs. Patient Problems: Active and Suspected Problems Debility (Acute) Cardiopulmonary arrest (Acute) Shock (Acute) Pneumonia (Acute) Aspiration into airway (Acute) Dysphagia (Acute) - Physical Exam Vitals/I&O's: Vital Signs Temp Pulse Resp BP Pulse Ox 98.1 F 73 18 112/55 L 90 06/15/19 15:17 06/16/19 12:13 06/16/19 12:13 06/15/19 15:17 06/16/19 13:05 Oxygen Flow Rate (L/min) 6 Oxygen Delivery Method Nasal Cannula Weight: 65.969 kg Body Mass Index (BMI) 19.6 Intake and Output for Last 24 Hours 06/14/19 06/15/19 06/16/19 23:59 23:59 23:59 Intake Total 570 / 570 955 / 955 280 / 280 Output Total 400 / 400 375 / 375 Balance 170 / 170 955 / 955 -95 / -95 Current Medications Acetaminophen (Tylenol) 650 mg PO Q4H PRN PRN PRN Reason: Pain Score 1-3/10 Albuterol Sulfate (Ventolin Aerosols) 2.5 mg INHALATION Q6H PRN PRN PRN Reason: WHEEZING Last Admin: 06/13/19 19:40 Dose: 2.5 mg Documented by: Albuterol/Ipratropium (Duoneb) 3 ml INHALATION Q6HWA.RT [facility] Last Admin: 06/16/19 13:55 Dose: Not Given Documented by: Calamine/Phenol (Calmoseptine Ointment) 1 applic TOPICAL 0600,2200 [facility]; Protocol Last Admin: 06/16/19 07:01 Dose: 1 applicatio Documented by: Carvedilol (Coreg) 12.5 mg PO BID [facility] Last Admin: 06/16/19 06:56 Dose: 12.5 mg Documented by: Docusate Sodium (Colace) 100 mg PO BID [facility] Last Admin: 06/16/19 06:56 Dose: 100 mg Documented by: Enoxaparin Sodium (Lovenox) 40 mg SC DAILY@0600 [facility] Last Admin: 06/16/19 06:55 Dose: 40 mg Documented by: Enteral Nutritional Formula (Jevity 1.5) 375 ml GT QHS [facility] Last Admin: 06/15/19 20:46 Dose: 375 ml Documented by: Lidocaine (Lidoderm Patch) 1 patch TOPICAL DAILY [facility]; Protocol Last Admin: 06/16/19 06:52 Dose: 1 patch Documented by: Melatonin (Melatonin) 10 mg PO QHS [facility] Last Admin: 06/15/19 20:30 Dose: 10 mg Documented by: Mirtazapine (Remeron) 7.5 mg PO QHS [facility] Last Admin: 06/15/19 20:30 Dose: 7.5 mg Documented by: Multi-Ingredient Cream (Eucerin) 1 applic TOPICAL 0 [facility]; Protocol Oxycodone HCl (Oxyir) 5 mg PO Q6H PRN PRN PRN Reason: Pain Score 4-10/10 Last Admin: 06/10/19 17:18 Dose: 5 mg Documented by: Pantoprazole Sodium (Protonix) 40 mg PO DAILY [facility] Last Admin: 06/16/19 07:05 Dose: 40 mg Documented by: Polyethylene Glycol (Miralax) 17 gm PO DAILY [facility] Last Admin: 06/16/19 06:56 Dose: 17 gm Documented by: Polysaccharide [facility] ([facility]rex 150) [facility] Last Admin: 06/16/19 08:04 Dose: 150 mg Documented by: Potassium Chloride (K-Dur) 20 [facility]q [facility] Last Admin: 06/16/19 08:04 Dose: 20 meq Documented by: Discharge Diet: No Restrictions Discharge Activity: Return to Normal Activity, May Shower, Use Walker Weight Bearing Status: Weight bearing as tolerated Call your doctor if you observe: Fever of 101 or Higher, Inability to urinate, Inability to have a bowel movement, Shortness of breath, Chest pain, Uncontrolled pain Home Medications: Medications to take at Discharge Glycopyrrolate/Formoterol Fum [Bevespi Aerosphere Inhaler] 2 puff PO BID 06/05/19 Omeprazole 40 mg GT DAILY 06/05/19 Potassium Chloride [K-Dur] 20 meq GT DAILY 06/05/19 Acetaminophen [Tylenol Tablet] 650 mg PO Q4H PRN PRN tablet 06/16/19 Albuterol Aerosols [Ventolin Aerosols] 2.5 mg INHALATION Q6H PRN PRN #120 06/16/19 Carvedilol [Coreg] 12.5 mg GT BID #60 tab 06/16/19 Docusate Sodium [Colace] 100 mg PO BID #60 cap 06/16/19 Ipratropium/Albuterol Sulfate [Duoneb] 3 ml INHALATION Q6HWA.RT #120 06/16/19 Iron Polysaccharide Complex [Ferrex 150] 150 mg PO DAILYCM #30 cap 06/16/19 Jevity 1.5 375 ml GT QHS #15 bottle 06/16/19 Lidocaine [Lidoderm Patch] 1 patch TOPICAL DAILY #30 patch 06/16/19 Melatonin 10 mg PO QHS tablet 06/16/19 Menthol/Lanolin/Calamine/Znox [Calmoseptine Ointment] 1 applic TOPICAL 0600,2200 tube 06/16/19 Mineral Oil/Petrolatum,White [Eucerin] 1 applic TOPICAL 2200 jar 06/16/19 Mirtazapine [Remeron] 7.5 mg PO QHS #30 tab 06/16/19 Polyethylene Glycol 3350 [Miralax] 17 gm GT DAILY #30 packet 06/16/19 Potassium Chloride [K-Dur] 20 meq PO DAILYCM #0 tablet 06/16/19 Following Prescrptions Were Given to Patient: Docusate Sodium [Colace] 100 mg PO BID #60 cap Prescription Printed Carvedilol [Coreg] 12.5 mg GT BID #60 tab Prescription Printed Ipratropium/Albuterol Sulfate [Duoneb] 3 ml INHALATION Q6HWA.RT #120 Prescription Printed Iron Polysaccharide Complex [Ferrex 150] 150 mg PO DAILYCM #30 cap Prescription Printed Jevity 1.5 375 ml GT QHS #15 bottle Prescription Printed Lidocaine [Lidoderm Patch] 1 patch TOPICAL DAILY #30 patch Prescription Printed Polyethylene Glycol 3350 [Miralax] 17 gm GT DAILY #30 packet Prescription Printed Mirtazapine [Remeron] 7.5 mg PO QHS #30 tab Prescription Printed Albuterol Aerosols [Ventolin Aerosols] 2.5 mg INHALATION Q6H PRN PRN #120 PRN Reason: Wheezing Prescription Printed Please Follow Up With: Dr. Misael Galeana When: 1 week. Disposition: Home with Hospice Minutes spent on discharge:: 30 Patient Condition:: Poor Medical Necessity - Tobacco Use Smoking Status: Former smoker Tobacco Use: Non-smoker Meaningful Use Info Meaningful Use Diagnoses (Choose all that apply): None applicable
--- NOTE | 2019-06-16 14:52 | CASEMGMT ---
Social Work Reviewed and agreed with social work regulatory internship documentation on this date. Jo Lawrence, [employer]ING [employer]ER
[2019-06-16 15:48] VITALS: BP 131/58; PULSE 70; RESP 22; TEMP 36.9; O2SAT 91
--- NOTE | 2019-06-16 17:18 | NURSING ---
Addendum entered by Mary Grant 06/16/19 17:46: back from CXR Original Note: pt off floor for cXR
--- NOTE | 2019-06-16 17:20 | RAD_ITS ---
STUDY: X-RAY CHEST REASON FOR EXAM: Male, 74 years old. SOB. TECHNIQUE: PA and lateral chest. COMPARISON: 07/10/2019. FINDINGS: There is increased blunting of the right costophrenic angle compared to the prior study, suggesting small pleural effusion superimposed on pre-existing fibrosis. There is mild opacity in the right lower lobe, suspicious for pneumonia. Upper lobes are clear. Normal size heart. Normal mediastinum and cookie. Normal visualized pulmonary arteries. Normal visualized aortic arch and descending thoracic aorta. Patient is status post vertebroplasty in the mid thoracic spine. Soft tissues and bony structures are otherwise unremarkable. RAD/Chest PA and Lateral IMPRESSION: 1. Right lower lobe pneumonia. 2. Question small right pleural effusion superimposed on chronic scarring. Electronically Signed: Shirley Uribe MD at 18:18 EST Tel , Service support ,
--- NOTE | 2019-06-16 17:25 | NURSING ---
Addendum entered by Rose Kapoor 06/16/19 18:44: chest xray results show pneumonia RLL, new orders entered for IV ATBS Original Note: came to desk reporting that pt SOB and not wanting to eat meal. sat 88-90% on 6 liters, pt was on 4-5 liters earlier in shift. Respiratory notified pt needing aerosal treatment. dr galindo updated, new order for chest xray. pt went down and back from xray.
[2019-06-16 17:35] VITALS: PULSE 83; RESP 26; O2SAT 92
[2019-06-16] MEDS: Albuterol 2.5 MG/3 ML VIAL.NEB. INHALATION (17:35)
[2019-06-16 19:17] VITALS: PULSE 77; RESP 32
[2019-06-16] MEDS: Ceftriaxone 1 GM/50 ML BAG IV (20:43)
[2019-06-16] MEDS: MELATONIN 10 MG TABLET PO (22:33)
[2019-06-16] MEDS: Mirtazapine 15 MG Tablet 7.5 MG PO (22:37)
[2019-06-16] MEDS: Jevity 1.5. 1,000 ML Bottle 375 ML GT (22:49)
[2019-06-16] MEDS: 0.9% Saline Lock 10 ML Syringe IV (23:19)
[2019-06-17 06:29] VITALS: PULSE 72; RESP 22; O2SAT 96
[2019-06-17] MEDS: Ipratropium/Albuterol Sulfate 3 ML AMPUL.NEB INHALATION ×3 (07:09→21:20)
[2019-06-17] MEDS: Lidocaine 5% Patch 1 PATCH TOPICAL (07:20)
[2019-06-17] MEDS: Enoxaparin 40 MG/0.4 ML Syringe SC (07:20)
[2019-06-17] MEDS: Menthol/Lanolin/Calamine/Znox 113 GM Tube 1 APPLIC TOPICAL ×2 (07:21→20:42)
--- NOTE | 2019-06-17 08:29 | NURSING ---
call out to pt's Morena, update status, pt not wanting to wake up, will open eyes to verbal stimulation but closes them within seconds, sleeping soundly, Spo2 @ 95 on 6L O2, will continue to monitor
--- NOTE | 2019-06-17 09:29 | NURSING ---
This nurse heard a door closed and went down the vu and looked in this room and noticed that they pt was not in his bed. Looked into the bathroom and the pt was sitting on the toilet. This nurse asked the pt why he didn't use his call light he stated I did. This nurse assisted the pt back to the bed and call light within reach. Educated the pt on the importance of using the call light for help.
--- NOTE | 2019-06-17 09:58 | NURSING ---
[facility] called updated on pts status, hospice nurse will be in to assess pt before noon today, will update
--- NOTE | 2019-06-17 10:18 | NURSING ---
Rubén from Hospice in to speak with Morena, there are no beds available at the facility, they will contact us if a bed opens this weekend... so Morena decided to take home with hospice on Wednesday at 10:00, transportation set up with [facility], D/C papers are to be faxed to Hospice Wednesday ([phone]) call report to hospice nurse, Antonia palacios delivered to pts room with many family/friends present
[2019-06-17 13:22] VITALS: PULSE 72; RESP 20
[2019-06-17] MEDS: Ceftriaxone 1 GM/50 ML BAG IV (14:02)
[2019-06-17 14:37] VITALS: BP 99/58; PULSE 67; RESP 16; TEMP 36.7; O2SAT 92
[2019-06-17] MEDS: Docusate Sodium 100 MG Capsule PO (17:58)
[2019-06-17] MEDS: Carvedilol 12.5 MG Tablet PO (17:58)
[2019-06-17 19:05] VITALS: PULSE 77; RESP 18; O2SAT 90
[2019-06-17 20:35] VITALS: PULSE 68; O2SAT 92
[2019-06-17] MEDS: Mirtazapine 15 MG Tablet 7.5 MG PO (20:41)
[2019-06-17] MEDS: MELATONIN 10 MG TABLET PO (20:41)
--- NOTE | 2019-06-18 00:03 | NURSING ---
Patient having increased secretions. Dr. Chambers notified. Orders given for Atropine drops PO q3h prn.
[2019-06-18 00:10] VITALS: O2SAT 90
[2019-06-18] MEDS: Atropine Sulfate 1% 2 ml Bottle 4 DRP PO ×5 (00:42→22:34)
[2019-06-18] MEDS: 0.9% Saline Lock 10 ML Syringe IV ×4 (00:49→23:14)
--- NOTE | 2019-06-18 01:50 | NURSING ---
Addendum entered by Keri Up 06/18/19 01:55: 06/17/19 23:47- Patients oxygen found at 68%. Patient easy to arouse at this time. Patient repositioned. Respirations at 44 per min. Venti mask put on at 40% per respiratory. Patients oxygen increased back to 90%. RN notified. Will continue to monitor. Original Note: 22:25 hours. Family called Nurse to room. Patient's Oxygen saturation at 76%. Patient repositioned. Patient lethargic. Removed extra oxygen tubing from Nasal Cannula. Respiratory called and breathing treatment administered. Patients saturation increased to 94% after some time. Will continue to monitor.
[2019-06-18] MEDS: Enoxaparin 40 MG/0.4 ML Syringe SC (06:06)
[2019-06-18] MEDS: Docusate Sodium 100 MG Capsule PO (06:06)
[2019-06-18] MEDS: Carvedilol 12.5 MG Tablet PO (06:06)
[2019-06-18] MEDS: Pantoprazole Sodium 40 MG Tablet PO (06:06)
[2019-06-18] MEDS: Menthol/Lanolin/Calamine/Znox 113 GM Tube 1 APPLIC TOPICAL ×2 (06:18→22:31)
[2019-06-18 06:56] VITALS: PULSE 83; RESP 28; O2SAT 92
[2019-06-18] MEDS: Ipratropium/Albuterol Sulfate 3 ML AMPUL.NEB INHALATION ×3 (06:56→19:26)
[2019-06-18] MEDS: Ceftriaxone 1 GM/50 ML BAG IV (10:02)
[2019-06-18 12:56] VITALS: O2SAT 93
[2019-06-18 13:11] VITALS: PULSE 78; RESP 34
[2019-06-18 19:26] VITALS: PULSE 76; RESP 30
--- NOTE | 2019-06-18 22:30 | NURSING ---
Patient lethargic at this time and hard to arouse. Patient refused HS Jevity and flush. Oxygen on via nasal cannula at 6 LPM. Patient tolerating well. Will continue to monitor.
[2019-06-18 23:26] VITALS: BP 119/66; PULSE 74; RESP 30; TEMP 37; O2SAT 98
[2019-06-19 02:15] VITALS: PULSE 78; RESP 34; O2SAT 91
[2019-06-19 02:28] VITALS: PULSE 90; RESP 32
[2019-06-19] MEDS: Albuterol 2.5 MG/3 ML VIAL.NEB. INHALATION (02:28)
[2019-06-19] MEDS: Atropine Sulfate 1% 2 ml Bottle 4 DRP PO (03:33)
--- NOTE | 2019-06-19 03:33 | CPS ---
Pt. given Albuterol, then instructed with PEP therapy afterwards. Pt. was able to perform PEP therapy properly, and he was able to cough up a small amount of thick mucus
[2019-06-19] MEDS: Enoxaparin 40 MG/0.4 ML Syringe SC (06:00)
[2019-06-19] MEDS: Lidocaine 5% Patch 1 PATCH TOPICAL (06:01)
[2019-06-19] MEDS: Menthol/Lanolin/Calamine/Znox 113 GM Tube 1 APPLIC TOPICAL (06:06)
[2019-06-19 07:25] VITALS: PULSE 75; RESP 16; O2SAT 68
[2019-06-19] MEDS: Ipratropium/Albuterol Sulfate 3 ML AMPUL.NEB INHALATION (07:25)
--- NOTE | 2019-06-19 07:25 | CPS ---
Patient found at 68% on 6lpm nasal cannula. Adjusted cannula and placed both prongs in nostrils and increased to 10 lpm. Alerted nurse. Patient boosted up in bed and given breathing treatment. Sats 98% on 10lpm, flow decreased to 6lpm. Nurse aware.
[2019-06-19] MEDS: Iron Polysaccharide Complex 150 MG CAPSULE PO (07:54)
[2019-06-19 08:00] VITALS: BP 107/60; PULSE 80; RESP 20; TEMP 36.8; O2SAT 93
[2019-06-19] MEDS: 0.9% Saline Lock 10 ML Syringe IV (08:40)
[2019-06-19] MEDS: Ceftriaxone 1 GM/50 ML BAG IV (09:45)
--- NOTE | 2019-06-19 10:02 | NURSING ---
report called to michael at hospice at this time
--- NOTE | 2019-06-21 17:00 | CASEMGMT ---
Social Work Reviewed and agreed with social work sales management intern documentation on this date. Jo Lawrence, PACK [employer]STER [employer]
== END 2019-06-19 10:20 | disposition hospice, home (50) | DRG 190 ==
PROVIDERS: Admitting Provider Family Medicine Geriatric Medicine; Referring Provider Family Medicine Geriatric Medicine; Visit Provider Family Medicine Geriatric Medicine
DX: J44.0 Chronic obstructive pulmonary disease with (acute) lower respiratory infection (principal); J18.9 Pneumonia, unspecified organism; Z86.74 Personal history of sudden cardiac arrest; Z23 Encounter for immunization; K21.9 Gastro-esophageal reflux disease without esophagitis; I10 Essential (primary) hypertension; Z87.891 Personal history of nicotine dependence; E87.6 Hypokalemia
CPT/HCPCS: 36415; 71046; 76000; 80048; 82962; 85014; 85018; 85025; 87633; 92507; 92526; 92610; 92611; 94640; 94667; 94668; 97110; 97116; 97162; 97166; 97530; 97535; 97802; 97803; G0009; J7050; 90670; A4216